=== PATIENT | male | born 1995 | race Caucasian/White ===

== ENCOUNTER 2018-02-13 04:01 | Emergency (ER) | payer OTHER ==
[~2018-02-13] VITALS: Ht 172.7 cm; Wt 112.9 kg
[2018-02-13 04:13] VITALS: Ht 172.7 cm; Wt 112.9 kg
[2018-02-13 05:42] VITALS: BP 137/76
== END 2018-02-13 05:42 | disposition home or self-care (01) ==
LOC: ED 04:01
DX: J02.9 Acute pharyngitis, unspecified (principal); J00 Acute nasopharyngitis [common cold]
CPT/HCPCS: J1100

== ENCOUNTER 2018-06-19 19:52 | Emergency (ER) | payer OTHER ==
[~2018-06-19] VITALS: Ht 172.7 cm; Wt 114.3 kg
[2018-06-19 20:42] VITALS: Ht 172.7 cm; Wt 114.3 kg
[2018-06-19 22:53] VITALS: BP 134/69
== END 2018-06-19 22:53 | disposition home or self-care (01) ==
LOC: ED 19:52
DX: J10.1 Influenza due to other identified influenza virus with other respiratory manifestations (principal); M94.0 Chondrocostal junction syndrome [Tietze]
CPT/HCPCS: 87804

== ENCOUNTER 2019-09-15 03:56 | Emergency (ER) | payer OTHER ==
[~2019-09-15] VITALS: Ht 172.7 cm; Wt 108.9 kg
[2019-09-15 04:09] VITALS: Ht 172.7 cm; Wt 108.9 kg
[2019-09-15 05:35] LABS: CALCIUM 9.6 mg/dL (8.5-10.1); CHLORIDE SERUM 102 mmol/L (98-107); CREATININE SERUM 1.2 mg/dL (0.7-1.3); GFR1 > 60 mL/min; GLUCOSE SERUM 99 mg/dL (74-106); POTASSIUM SERUM 4.1 mmol/L (3.5-5.1); SODIUM SERUM 138 mmol/L (136-145)
[2019-09-15 05:37] LABS: BASOPHIL % 0.4 % (0-2); PLATELET COUNT 282 x10^3mcL (130-400); RED CELL DISTRIBUTION WIDTH 13.3 % (11.5-14.5)
[2019-09-15 05:39] LABS: ALBUMIN 4.2 g/dL (3.4-5.0); ALKALINE PHOSPHATASE 58 U/L (46-116); ALT/SGPT 26 U/L (16-63); AST/SGOT 11 U/L (15-37); BILIRUBIN TOTAL 0.36 mg/dL (0.20-1.00); LIPASE 108 IU/L (73-393)
[2019-09-15 06:33] VITALS: BP 135/92
== END 2019-09-15 06:33 | disposition home or self-care (01) ==
LOC: ED 03:56
PROVIDERS: Emergency Medicine
DX: R10.13 Epigastric pain (principal); R42 Dizziness and giddiness; G47.00 Insomnia, unspecified
CPT/HCPCS: 36415; Q0092; Q0162